=== PATIENT | male | born 1995 | race Caucasian/White ===

== ENCOUNTER 2018-02-11 02:43 | Emergency (ER) | payer OTHER, SELFPAY ==
[2018-02-11 02:45] VITALS: BP 138/78; PULSE 110; RESP 17; TEMP 36.9; O2SAT 97; BMI 21.2
--- NOTE | 2018-02-11 03:25 | ED.DCSUM_ITS ---
History of Present Illness Chief Complaint: Substance Abuse Informant: Patient Narrative: Patient presents wanting help with a drug abuse problem. He states he uses heroin and methamphetamine daily for about the past 2 years. He states in the same breath that he wants help getting off of the drugs, but wants to do it his way, and being admitted to the hospital is not his way, so he is here satisfying family members who wanted me to come. He last used both heroin and methamphetamine about 12 hours prior to arrival. He states he is now feeling a little anxious and shaky. He states he prefers to have somebody drop him off 500 miles away, it should take me about 16 days to walk back, and then I will be forced to be naturally detoxed. But no one will do that for me. Past Medical History - Allergies and Home Meds Allergies/Adverse Reactions: Allergies No Known Allergies Allergy (Verified 02/11/18 02:44) Primary Care Physician: EIGHTY,ONE [STAFF PHYSICIAN] - As soon as possible (or call new [facility] number, if you want acute detox) Past Medical History: None Smoking Status: Current every day smoker Drugs: Heroin, - - methamphetamine Review of Systems General: Reports: Malaise - and shaky. Denies: Chills, Fever, Sweats Cardiovascular: Denies: Chest pain, Palpitations Respiratory: Denies: Dyspnea, Cough, Dyspnea on exertion Gastrointestinal: Denies: Abdominal pain, Nausea, Vomiting, Diarrhea, Melena, Hematochezia Genitourinary: Denies: Dysuria, Hematuria, Frequency Musculoskeletal: Denies: Back pain, Extremity Pain Skin: Denies: Rash, Wounds Neurological: Denies: Headache, Weakness, Numbness Psych: Reports: Anxiety. Denies: Suicidal thoughts, Suicidal ideations Physical Exam Vital Signs/Narrative: Vital Signs Temp Pulse Resp BP Pulse Ox 02/11/18 02:45 98.4 F 110 H 17 138/78 H 97 Inital Vital Signs reviewed: Yes General: Well nourished, Well developed Head: Normocephalic, Atraumatic Eyes: Perrl, EOMI Neck: Supple - FROM Skin: Normal color, No rash Neurological: Alert, Oriented x3, Cranial nerves II-XII grossly intact, Normal Strength, Normal Sensation, Normal Gait Psychological: Normal affect Diagnostic/Tx/Re-eval - Medical Decision Making In discussing options with patient, and the fact that he would be less uncomfortable in a controlled environment meant for detox, he declines my offer for admission. It is Monday night/Monday morning, and he will not be evaluated for detox, if admitted, until Monday. This was discussed with him. He graciously accepts outpatient materials for [facility] and [facility]. He was a dvised that no one can force him to go through detox, he must go through it voluntarily. If he decides to, he was encouraged to either return to the ER, where he can be reevaluated for admission for inpatient detox, or to call 1 of the numbers and the pamphlets he was given. He was very appreciative of this plan, the family member who accompanied him did not object. ED Disposition - Plan for ED Patient: Disposition: Home or Assisted Living Chief Complaint: Substance Abuse Diagnosis: Opiate dependence, Methamphetamine addiction Instructions: ED Narcotic Abuse, ED Withdrawal Narcotic Referrals: EIGHTY,ONE [STAFF PHYSICIAN] - As soon as possible (or call new [facility] number, if you want acute detox)
--- NOTE | 2018-02-11 03:41 | ED.RN ---
THIS RN WENT TO DISCHARGE PT. PT REFUSED TO TAKE HIS INSTRUCTIONS, STATES JUST GIVE THEM TO MY MOM I'M LEAVING. PT MOTHER EDUCATED ON DISCHARGE INSTRUCTIONS AND PAMPHLETS FOR [facility] AND [facility] TO FOLLOW UP. PT MOTHER TAKES D/C PAPERS AND VERBALIZES UNDERSTANDING. DENIES ANY FURTHER QUESTIONS.
== END 2018-02-11 03:44 | disposition home or self-care (01) ==
LOC: ED 03:36
PROVIDERS: Emergency Provider Emergency Medicine; Family Provider Family Medicine
DX: F11.20 Opioid dependence, uncomplicated (principal); F15.20 Other stimulant dependence, uncomplicated; F17.200 Nicotine dependence, unspecified, uncomplicated
CPT/HCPCS: 99282

== ENCOUNTER 2018-02-23 14:05 | Emergency (ER) | payer OTHER, SELFPAY ==
[2018-02-23 14:06] VITALS: BP 134/88; PULSE 122; RESP 16; TEMP 36.3; O2SAT 97; BMI 21.6
--- NOTE | 2018-02-23 14:30 | RAD_ITS ---
STUDY: X-RAY - LEFT ANKLE REASON FOR EXAM: Male, 22 years old. Ankle pain following injury. TECHNIQUE: 3 view(s) of the ankle. COMPARISON: None. FINDINGS: Normal visualized distal tibia and fibula. Normal medial and lateral malleoli. Normal tibiotalar articulation and ankle mortise. Normal visualized talus and calcaneus. The visualized subtalar, talonavicular, calcaneocuboid and tarsal articulations are normal. The soft tissue structures are unremarkable. RAD/Ankle min 3 Views IMPRESSION: Normal x-ray examination of the ankle. Electronically Signed: Leo Mullins MD at 15:08 EDT Tel [phone], Service support ,
--- NOTE | 2018-02-23 14:38 | RAD_ITS ---
STUDY: X-RAY - LEFT FOOT CLINICAL: Male, 22 years old. Pain following injury. TECHNIQUE: 3 view(s) of the foot. COMPARISON: None. FINDINGS: Normal talus, calcaneus, and tarsal bones. Normal visualized subtalar, talonavicular, calcaneocuboid, tarsal and tarsometatarsal articulations. Normal metatarsi. Normal metatarsophalangeal joint of the great toe. Normal tibial and fibular sesamoid bones. Normal interphalangeal joint of the great toe. Normal phalanges of the great toe. Normal second through fifth metatarsophalangeal joints. Normal interphalangeal joints and phalanges of the lesser toes. The soft tissue structures are unremarkable. RAD/Foot min 3 Views IMPRESSION: Normal x-ray examination of the foot. Electronically Signed: Leo Mullins MD at 15:09 EDT Tel [phone], Service support ,
--- NOTE | 2018-02-23 15:47 | ED.VISSUMM ---
- ER Visit Summary Date of Service: 02/23/18 Chief Complaint: Left foot pain History of Present Illness: The patient is a 22 M with no primary care physician. He is a poor informant. He reports that approximately 6:00 this morning he fell from a height of approximately 8 feet. However, he is unable to tell me what he fell off of. He denies any blow to the head or loss of consciousness. He denies any neck, back, or other injuries. He reports that he has a sharp pain in his left foot that is 8 out of 10 with walking and 4 out of 10 at rest. He is not taking anything for this. Physical Examination: Vitals: Stable. Afebrile. Neck: No vertebral tenderness. Full ROM without difficulty. Cleared by NEXUS criteria. Back: No vertebral tenderness. General: A&O x 3. NAD. Cardiovascular exam: Regular rate and rhythm, no murmur, rub or gallop. Respiratory exam: Chest nontender. No crepitus. Clear to auscultation bilaterally. No wheezes or stridor. Abdominal exam: Soft, nontender, nondistended, normal bowel sounds. No pain in RUQ or LUQ specifically. No peritoneal signs. Extremity: Mild tenderness palpation over the lateral malleolus on the left. Moderate tenderness palpation just distal to this with mild soft tissue swelling. No contusion or abrasion. No pain over the medial malleolus or proximal fibula. No pain over the base the fifth metatarsal. He has a 2+ dorsalis pedis pulse and normal sensation light touch.. Test Results: X-ray of his left foot and ankle are negative. Emergency Department Course and Treatment: Patient was treated with ibuprofen. He refused crutches. Treatment Plan: Patient be discharged with naproxen for pain. Follow-up with Dr. Spears in 1 week if not improving. Disposition: To home in improved and stable condition. Impression: 1. Fall. 2. Left foot sprain. This note was generated with [employer] dictation software. It may contain incorrect words, spelling, and punctuation that were not noted in review of the chart prior to signing ED Disposition - Plan for ED Patient: Disposition: Home or Assisted Living Chief Complaint: Lower Extremity Injury Instructions: ED Sprain Foot Prescriptions: Naproxen [Naprosyn] 500 mg PO BID #14 tablet Referrals: Ti Spears DPM [STAFF PHYSICIAN] - 1 Week if not improving
[2018-02-23 15:57] VITALS: BP 132/83; PULSE 99; RESP 16; O2SAT 99
[2018-02-23] MEDS: Ibuprofen 600 MG Tablet PO (15:57)
== END 2018-02-23 16:01 | disposition home or self-care (01) ==
PROVIDERS: Emergency Provider Emergency Medicine
DX: S93.602A Unspecified sprain of left foot, initial encounter (principal); W17.89XA Other fall from one level to another, initial encounter; Y93.9 Activity, unspecified; Y92.9 Unspecified place or not applicable; F17.200 Nicotine dependence, unspecified, uncomplicated
CPT/HCPCS: 73610; 73630; 99283

== ENCOUNTER 2018-03-22 02:36 | Emergency (ER) | payer OTHER, SELFPAY ==
[2018-03-22 02:38] VITALS: BP 152/88; PULSE 124; RESP 16; TEMP 36.8; O2SAT 100; BMI 21.7
--- NOTE | 2018-03-22 03:00 | ED.DCSUM_ITS ---
- ER Visit Summary Date of Service: 03/22/18 Chief Complaint: [] STD check History of Present Illness: The patient is a 22 M requesting STD check. He is a penile discharge for 1 month green and thick. Positive sexually active one partner with his girlfriend who is in [place] [facility] with similar symptoms. He stated he had bumps along his pubic line that went away. Positive remote chlamydia only. Denies any other symptoms Physical Examination: [] Vital signs reviewed General: Well-nourished well-developed Head: Normocephalic atraumatic Eyes: Pupils equal round and reactive to light extraocular movements intact ENT: TMs clear no hemotympanum no trauma Neck: Nontender full range of motion Cardiovascular: Regular rate rhythm no murmurs normal S1-S2 Respiratory: No distress clear to auscultation bilaterally chest nontender Abdomen: Soft nontender nondistended normal bowel sounds no masses Genital:. Patient refused Back: Nontender no CVA tenderness Extremities: Nontender active range of motion ?4 extremities no trauma Skin: Normal color no trauma Neuro alert oriented cranial nerves II through XII intact normal strength sensation reflexes Test Results: [] Emergency Department Course and Treatment: [] Patient refused general exam. Willing to give a urine analysis. Urine analysis sent for gonorrhea and chlamydia as well as Trichomonas. Treated with ceftriaxone and azithromycin. Will hold off on trich treatment pending result. This time he likely has urethritis. We will follow-up with the [facility] department for further testing Treatment Plan: [] Disposition: [] Impression: [] Penile discharge?suspected urethritis This note was generated with [employer] dictation software. It may contain incorrect words, spelling, and punctuation that were not noted in review of the chart prior to signing ED Disposition - Plan for ED Patient: Chief Complaint: Male Pain/Injury Referrals: Care Physician,No Primary [Primary Care Provider] -
--- NOTE | 2018-03-22 03:00 | ED.DEP ---
ED Disposition - Plan for ED Patient: Disposition: Home or Assisted Living Chief Complaint: Male Pain/Injury Instructions: ED STD Male Treated Referrals: Care Physician,No Primary [Primary Care Provider] - [facility] [[facility]] - Vazquez Vick DO [NON CLINICAL AFFILIATE] -
[2018-03-22] MEDS: Azithromycin 250 MG Tablet 1000 MG PO (03:01)
[2018-03-22] MEDS: Ceftriaxone 500 MG Vial 250 MG IM (03:09)
[2018-03-22 03:23] VITALS: BP 159/75; PULSE 125; RESP 17; O2SAT 96
[2018-03-22 04:34] LABS: Probe Check PASS; Sample Adequacy Control PASS; Specimen Processing Control PASS; Trichomonas Vag DNA by PCR Negative (Negative)
[2018-03-22 04:44] LABS: Probe Check PASS
[2018-03-22 04:46] LABS: Chlamydia Trachomatis by PCR POSITIVE (Negative); Neisserai gonorrhoeae by PCR Positive (Negative)
--- NOTE | 2018-03-22 04:49 | ED.RN ---
lab called with positive results. positive gonorrhea and chloamydia. Dr. Avalos made aware. Patient has been treated and requires no further follow up at this time. Attempted to contact patient to let him know. Unable to leave message secondary number is not working
--- NOTE | 2018-03-22 05:36 | ED.RN ---
made contact with the patient. patient made aware of results. and expresses verbal understanding
--- OUTSIDE RECORDS SUMMARY | 2018-05-17 05:23 | XMS RPT_ITS ---
:1995 Author Organization [facility] Care Team Providers Name Role Phone Umer Costello Primary Care Unavailable SATYA MORRELL Attending Unavailable Darwin Julian Attending Unavailable Primay Care Physicia, No Primary Care Unavailable Behzad Avalos Attending Unavailable Primay Care Physicia, No Primary Care Unavailable PROBLEMS PROBLEMS No Problem Records FoundPROCEDURES PROCEDURES No Procedure Records FoundRESULTS RESULTS EMERGENCY DEPARTMENT Observed: 03/22/2018 Status: F Source: [place] SUMMARY 7:13 AM [facility] REPOSITORY [facility] Medical Records Department [address] [place] [address] Emergency Department Summary 03/22/18 0259 MR#: [id number] Acct: [id number] Name: TENZIN GUERRERO Rep #: [id number] : 1995 22 From: Behzad Avalos MD PCP: Care Physician, No Primary Status: DEP ER - ER Visit Summary Date of Service: 03/22/18 Chief Complaint: [] STD check History of Present Illness: The patient is a 22 M requesting STD check. He is a penile discharge for 1 month green and thick. Positive sexually active one partner with his girlfriend who is in prison with similar symptoms. He stated he had bumps along his pubic line that went away. Positive remote chlamydia only. Denies any other symptoms Physical Examination: [] Vital signs reviewed General: Well-nourished well-developed Head: Normocephalic atraumatic Eyes: Pupils equal round and reactive to light extraocular movements intact ENT: TMs clear no hemotympanum no trauma Neck: Nontender full range of motion Cardiovascular: Regular rate rhythm no murmurs normal S1-S2 Respiratory: No distress clear to auscultation bilaterally chest nontender Abdomen: Soft nontender nondistended normal bowel sounds no masses Genital:. Patient refused Back: Nontender no CVA tenderness Extremities: Nontender active range of motion 4 extremities no trauma Skin: Normal color no trauma Neuro alert oriented cranial nerves II through XII intact normal strength sensation reflexes Test Results: [] Emergency Department Course and Treatment: [] Patient refused general exam. Willing to give a urine analysis. Urine analysis sent for gonorrhea and chlamydia as well as Trichomonas. Treated with ceftriaxone and azithromycin. Will hold off on trich treatment pending result. This time he likely has urethritis. We will follow-up with the [facility] for further testing Treatment Plan: [] Disposition: [] Impression: [] Penile discharge suspected urethritis This note was generated with [employer] dictation software. It may contain incorrect words, spelling, and punctuation that were not noted in review of the chart prior to signing ED Disposition - Plan for ED Patient: Chief Complaint: Male Pain/Injury Referrals: Care Physician,No Primary [Primary Care Provider] - What to do if you have Problems For any increased pain, shortness of breath, bleeding, nausea or vomiting, chest pain, or any unexpected problems, contact your Primary Care Provider. Call [facility] ([phone]) or report to the closest Emergency Room. Call 911 if necessary. 03/22/18 0713 <Electronically signed by Behzad Avalos MD> Date Behzad Avalos MD Cosigner Signature (If Indicated): Date CC: No Primary Care Physician DISCHARGE INSTRUCTION Observed: 03/22/2018 Status: F Source: [place] 7:13 AM [facility] REPOSITORY [facility] Medical Records Department [address] [place] [address] Discharge Instruction 03/22/18 0300 MR#: [id number] Acct: [id number] Name: TENZIN GUERRERO Rep #: [id number] : 1995 22 From: Behzad Avalos MD PCP: Franky Physician, No Primary Status: DEP ER ED Disposition - Plan for ED Patient: Disposition: Home or Assisted Living Chief Complaint: Male Pain/Injury Instructions: ED STD Male Treated Referrals: Care Physician,No Primary [Primary Care Provider] - [facility] [[facility]] - Vazquez Vick DO [NON CLINICAL AFFILIATE] - What to do if you have Problems For any increased pain, shortness of breath, bleeding, nausea or vomiting, chest pain, or any unexpected problems, contact your Primary Care Provider. Call [facility] ([phone]) or report to the closest Emergency Room. Call 911 if necessary. 03/22/18712 <Electronically signed by Behzad Avalos MD> Date Behzad Avalos MD Cosigner Signature (If Indicated): Date CC: No Primary Care Physician TRICHOMONAS VAGINALIS Collected: 03/22/2018 Status: F Source: [place] [facility]/PCR 3:05 AM [facility] REPOSITORY TYPE CODE TESTS RESULT OUT OF RANGE REFERENCE UNITS LAB L8200.3100 Negative Normal TV RESULT Negative Performed By: #### L8200.3000 #### [facility] [address] [place], [address] CT/NG [facility] BY PCR Collected: 03/22/2018 Status: F Source: [place] 3:05 AM [facility] REPOSITORY Order Comment: Has pt arrived? Y TYPE CODE TESTS RESULT OUT OF REFERENCE UNITS RANGE LAB L8200.2100 Negative High Chlam POSITIVE Trac PCR Result Comment: CRITICAL VALUE VERIFIED. CALLED TO SHAHIDA DÍAZ 03/22/18 044Imelda Janina Méndez. RESULTS READ BACK BY SAME . LAB L8200.2200 Negative High Positive NG by PCR Result Comment: CRITICAL VALUE VERIFIED. CALLED TO SHAHIDA DÍAZ 03/22/18 044Imelda Janina Méndez. RESULTS READ BACK BY SAME . Performed By: #### L8200.2000 #### [facility] [address] [place], [address] EMERGENCY DEPARTMENT Observed: 02/23/2018 Status: F Source: [place] SUMMARY 4:29 PM [facility] REPOSITORY [facility] Medical Records Department [address] [place] [address] Emergency Department Summary 02/23/18 1547 MR#: [id number] Acct: [id number] Name: TENZIN GUERRERO Rep #: [id number] : 1995 22 From: Darwin Julian MD PCP: Care Physician, No Primary Status: DEP ER - ER Visit Summary Date of Service: 02/23/18 Chief Complaint: Left foot pain History of Present Illness: The patient is a 22 M with no primary care physician. He is a poor informant. He reports that approximately 6:00 this morning he fell from a height of approximately 8 feet. However, he is unable to tell me what he fell off of. He denies any blow to the head or loss of consciousness. He denies any neck, back, or other injuries. He reports that he has a sharp pain in his left foot that is 8 out of 10 with walking and 4 out of 10 at rest. He is not taking anything for this. Physical Examination: Vitals: Stable. Afebrile. Neck: No vertebral tenderness. Full ROM without difficulty. Cleared by NEXUS criteria. Back: No vertebral tenderness. General: A AND O x 3. NAD. Cardiovascular exam: Regular rate and rhythm, no murmur, rub or gallop. Respiratory exam: Chest nontender. No crepitus. Clear to auscultation bilaterally. No wheezes or stridor. Abdominal exam: Soft, nontender, nondistended, normal bowel sounds. No pain in RUQ or LUQ specifically. No peritoneal signs. Extremity: Mild tenderness palpation over the lateral malleolus on the left. Moderate tenderness palpation just distal to this with mild soft tissue swelling. No contusion or abrasion. No pain over the medial malleolus or proximal fibula. No pain over the base the fifth metatarsal. He has a 2+ dorsalis pedis pulse and normal sensation light touch.. Test Results: X-ray of his left foot and ankle are negative. Emergency Department Course and Treatment: Patient was treated with ibuprofen. He refused crutches. Treatment Plan: Patient be discharged with naproxen for pain. Follow-up with Dr. Spears in 1 week if not improving. Disposition: To home in improved and stable condition. Impression: 1. Fall. 2. Left foot sprain. This note was generated with [employer] dictation software. It may contain incorrect words, spelling, and punctuation that were not noted in review of the chart prior to signing ED Disposition - Plan for ED Patient: Disposition: Home or Assisted Living Chief Complaint: Lower Extremity Injury Instructions: ED Sprain Foot Prescriptions: Naproxen [Naprosyn] 500 mg PO BID #14 tablet Referrals: Ti Spears DPM [STAFF PHYSICIAN] - 1 Week if not improving What to do if you have Problems For any increased pain, shortness of breath, bleeding, nausea or vomiting, chest pain, or any unexpected problems, contact your Primary Care Provider. Call [facility] ([phone]) or report to the closest Emergency Room. Call 911 if necessary. 02/23/18 6009 <Electronically signed by Darwin Julian MD> Date Darwin Julian MD Cosigner Signature (If Indicated): Date CC: No Primary Care Physician ANKLE MIN 3 VIEWS Observed: 02/23/2018 Status: F Source: [place] 2[facility]28 PM [facility] Imaging Services [address] [place] [address] Ankle min 3 Views MR#: [id number] Acct: [id number] Name: TENZIN GUERRERO Rep #: [id number] : 1995 M 22 From: Leo Mullins MD PCP: Care Physician, No Primary Status: REG ER Study: Ankle min 3 Views Date of Exam: 02/23/18 Exam# [id number] Ordering Dr: Darwin Julian MD STUDY: X-RAY - LEFT ANKLE REASON FOR EXAM: Male, 22 years old. Ankle pain following injury. TECHNIQUE: 3 view(s) of the ankle. COMPARISON: None. FINDINGS: Normal visualized distal tibia and fibula. Normal medial and lateral malleoli. Normal tibiotalar articulation and ankle mortise. Normal visualized talus and calcaneus. The visualized subtalar, talonavicular, calcaneocuboid and tarsal articulations are normal. The soft tissue structures are unremarkable. RAD/Ankle min 3 Views IMPRESSION: Normal x-ray examination of the ankle. Electronically Signed: Leo Mullins MD at 15:08 EDT Tel [phone], Service support , CC: No Primary Care Physician; Darwin Julian MD Bar Helper: Signed FOOT MIN 3 VIEWS Observed: 02/23/2018 Status: F Source: [place] 2:28 PM [facility] REPOSITORY [facility] Imaging Services [address] [place] [address] Foot min 3 Views MR#: [id number] Acct: [id number] Name: TENZIN GUERRERO Rep #: [id number] : 1995 M 22 From: Leo Mullins MD PCP: Care Physician, No Primary Status: REG ER Study: Foot min 3 Views Date of Exam: 02/23/18 Exam# [id number] Ordering Dr: Darwin Julian MD STUDY: X-RAY - LEFT FOOT CLINICAL: Male, 22 years old. Pain following injury. TECHNIQUE: 3 view(s) of the foot. COMPARISON: None. FINDINGS: Normal talus, calcaneus, and tarsal bones. Normal visualized subtalar, talonavicular, calcaneocuboid, tarsal and tarsometatarsal articulations. Normal metatarsi. Normal metatarsophalangeal joint of the great toe. Normal tibial and fibular sesamoid bones. Normal interphalangeal joint of the great toe. Normal phalanges of the great toe. Normal second through fifth metatarsophalangeal joints. Normal interphalangeal joints and phalanges of the lesser toes. The soft tissue structures are unremarkable. RAD/Foot min 3 Views IMPRESSION: Normal x-ray examination of the foot. Electronically Signed: Leo Mullins MD at 15:09 EDT Tel [phone], Service support , CC: No Primary Care Physician; Darwin Julian MD Bar Helper: Signed EMERGENCY DEPARTMENT Observed: 02/11/2018 Status: F Source: [place] SUMMARY 5:04 AM [facility] REPOSITORY [facility] Medical Records Department [address] [place] [address] Emergency Department Summary 02/11/18 0321 MR#: [id number] Acct: [id number] Name: TENZIN GUERRERO Rep #: [id number] : 1995 22 From: Satya Morrell MD PCP: ANTONY, DEFINED Status: DEP ER History of Present Illness Chief Complaint: Substance Abuse Informant: Patient Narrative: Patient presents wanting help with a drug abuse problem. He states he uses heroin and methamphetamine daily for about the past 2 years. He states in the same breath that he wants help getting off of the drugs, but wants to do it his way, and being admitted to the hospital is not his way, so he is here satisfying family members who wanted me to come. He last used both heroin and methamphetamine about 12 hours prior to arrival. He states he is now feeling a little anxious and shaky. He states he prefers to have somebody drop him off 500 miles away, it should take me about 16 days to walk back, and then I will be forced to be naturally detoxed. But no one will do that for me. Past Medical History - Allergies and Home Meds Allergies/Adverse Reactions: Allergies No Known Allergies Allergy (Verified 02/11/18 02:44) Primary Care Physician: EIGHTY,ONE [STAFF PHYSICIAN] - As soon as possible (or call [facility] number, if you want acute detox) Past Medical History: None Smoking Status: Current every day smoker Drugs: Heroin, - - methamphetamine Review of Systems General: Reports: Malaise - and shaky. Denies: Chills, Fever, Sweats Cardiovascular: Denies: Chest pain, Palpitations Respiratory: Denies: Dyspnea, Cough, Dyspnea on exertion Gastrointestinal: Denies: Abdominal pain, Nausea, Vomiting, Diarrhea, Melena, Hematochezia Genitourinary: Denies: Dysuria, Hematuria, Frequency Musculoskeletal: Denies: Back pain, Extremity Pain Skin: Denies: Rash, Wounds Neurological: Denies: Headache, Weakness, Numbness Psych: Reports: Anxiety. Denies: Suicidal thoughts, Suicidal ideations Physical Exam Vital Signs/Narrative: Vital Signs 02/11/18 02:45 98.4 F 110 H 17 138/78 H 97 Inital Vital Signs reviewed: Yes General: Well nourished, Well developed Head: Normocephalic, Atraumatic Eyes: Perrl, EOMI Neck: Supple - FROM Skin: Normal color, No rash Neurological: Alert, Oriented x3, Cranial nerves II-XII grossly intact, Normal Strength, Normal Sensation, Normal Gait Psychological: Normal affect Diagnostic/Tx/Re-eval - Medical Decision Making In discussing options with patient, and the fact that he would be less uncomfortable in a controlled environment meant for detox, he declines my offer for admission. It is Monday night/Monday morning, and he will not be evaluated for detox, if admitted, until Monday. This was discussed with him. He graciously accepts outpatient materials for [facility]. He was advised that no one can force him to go through detox, he must go through it voluntarily. If he decides to, he was encouraged to either return to the ER, where he can be reevaluated for admission for inpatient detox, or to call 1 of the numbers and the pamphlets he was given. He was very appreciative of this plan, the family member who accompanied him did not object. ED Disposition - Plan for ED Patient: Disposition: Home or Assisted Living Chief Complaint: Substance Abuse Diagnosis: Opiate dependence, Methamphetamine addiction Instructions: ED Narcotic Abuse, ED Withdrawal Narcotic Referrals: EIGHTY,ONE [STAFF PHYSICIAN] - As soon as possible (or call [facility] number, if you want acute detox) What to do if you have Problems For any increased pain, shortness of breath, bleeding, nausea or vomiting, chest pain, or any unexpected problems, contact your Primary Care Provider. Call [facility] ([phone]) or report to the closest Emergency Room. Call 911 if necessary. 02/11/18 0504 <Electronically signed by Satya Morrell MD> Date Satya Morrell MD Cosigner Signature (If Indicated): Date CC: DEFINED NOT; Umer Costello DO ALLERGIES ALLERGIES DATE TYPE / CODE NAME / CODE REACTION SEVERITY SOURCE 03/22/2018 Drug No Known Unknown [facility] Allergy/4160 Allergies/F00 Hospital [address]014(SNOMED [id number](RXNOR Repository CT) M) ENCOUNTERS ENCOUNTERS ADMIT/DISCHARGE ACCOUNT ADMITTING ENCOUNTER LOCATION SOURCE NUMBER CLASS 03/22/2018/ [id number] Emergency [address] ing:ED Repository 02/23/2018/ [id number] Emergency [address] ing:ED Repository 02/11/2018/ [id number] [place] [facility] ing:ED Repository PAYERS PAYERS ENCOUNTER GUARANTOR PAYER SUBSCRIBER SOURCE 03/22/2018 TENZIN GUERRERO222 Primary Darek Hu: Franny Hillman Insurance:MEDICAL [id number] [id number]: [phone]) Number: Repository [phone] () [id number] Date:[id number] [address] [place], [place] [id number]: 03/22/2018 Secondary NOT GIVENUNK [place] Insurance:SELF PAY [facility] Number: Effective Repository Date:2018-03-22 02/23/2018 TENZIN GUERRERO222 Primary Darek Hu: [place] Insurance:MEDICAL [id number] [address]Tel: [phone]) Number: Repository [phone] () [id number] Date:[id number] [address] [place], [place] [address]WP: 02/23/2018 Secondary NOT GIVENUNK Franny Insurance:SELF PAY [facility] Number: Effective Repository Date:2018-02-23 02/11/2018 Tenzin Guerrero222 Primary Darek Hu: [place] Insurance:MEDICAL [id number] [id number]: [phone]) Number: Repository [phone] () [id number] Date:[id number] [address] [place] [id number]: 02/11/2018 Secondary NOT GIVENUNK [place] Insurance:SELF PAY [facility] Number: Effective Repository Date:2018-02-11
== END 2018-03-22 03:24 | disposition home or self-care (01) ==
PROVIDERS: Emergency Provider Emergency Medicine
DX: R36.9 Urethral discharge, unspecified (principal); Z11.3 Encounter for screening for infections with a predominantly sexual mode of transmission; Z86.19 Personal history of other infectious and parasitic diseases; Z72.0 Tobacco use
CPT/HCPCS: 87491; 87591; 87661; 96372; 99283

== ENCOUNTER 2019-02-09 11:50 | Emergency (ER) | payer OTHER, SELFPAY ==
[2019-02-09 11:52] VITALS: BP 144/98; PULSE 81; RESP 16; TEMP 36.6; O2SAT 96; BMI 27.2
[2019-02-09] MEDS: Amox/Clavulanate 875 MG Tablet PO (12:09)
[2019-02-09] MEDS: HYDROcodone Bitartrate/Apap 5/325 Tablet PO (12:09)
--- NOTE | 2019-02-09 12:15 | ED.VIS.GEN ---
History of Present Illness Chief Complaint: Dental Informant: Patient Onset: Days Context: Gradual Onset Current Severity: Moderate Maximum Severity: Moderate Narrative: The patient presents to the emergency department dental pain. Patient has had a prior dental extraction and feels like he may have an abscess at the area. He had increased pain and swelling in his left upper jaw. He also describes facial fullness. He is scheduled to see his dentist tomorrow. He states he is just had worsening pain. He denies fevers or chills. He denies any trouble speaking or swallowing. Prior similar symptoms: No Recent Illness/Hospitalization: No Past Medical History - Allergies and Home Meds Allergies/Adverse Reactions: Allergies No Known Allergies Allergy (Verified 02/09/19 11:51) Primary Care Physician: Care Physician,No Primary [Primary Care Provider] - Prior records reviewed: Yes Past Medical History: None Surgical History: no surgical history Smoking Status: Current every day smoker Review of Systems General: Denies: Chills, Fever, Sweats Eyes: Denies: Visual changes - bilaterally, Diplopia ENT: Denies: Rhinorrhea, Sore throat Cardiovascular: Denies: Chest pain, Palpitations Respiratory: Denies: Dyspnea, Cough, Dyspnea on exertion Gastrointestinal: Denies: Abdominal pain, Nausea, Vomiting, Diarrhea, Melena, Hematochezia Genitourinary: Denies: Dysuria, Hematuria, Frequency Musculoskeletal: Denies: Back pain, Extremity Pain Skin: Denies: Rash, Wounds Neurological: Denies: Headache, Weakness, Numbness Physical Exam Vital Signs/Narrative: Vital Signs Temp Pulse Resp BP Pulse Ox 02/09/19 11:52 97.8 F 81 16 144/98 H 96 Inital Vital Signs reviewed: Yes General: Well nourished, Well developed, No Acute Distress Head: Normocephalic, Atraumatic Eyes: Perrl, EOMI ENT: Moist mucous membranes, No rhinorrhea, - - Oropharynx widely patent. He does have tenderness over the area of tooth #12. There is no focal abscess. The submental space is soft. Neck: Supple, Nontender Cardiovascular: Regular rate, Regular rhythm, No murmurs Respiratory: No distress, CTA bilaterally, Chest nontender Abdomen: Soft, Nontender, Nondistended, Normal bowel sounds Back: Nontender, Normal Inspection Extremities: Nontender, No edema Skin: Normal color, No rash Neurological: Alert, Oriented x3, Cranial nerves II-XII grossly intact, Normal Strength, Normal Sensation Psychological: Normal affect, Normal Mood Diagnostic/Tx/Re-eval - Medical Decision Making Patient presents with dental pain. There was no evidence of Ezio angina. He was started on Augmentin. He will be given 1 day of analgesics until he can follow-up with dentistry. He will be discharged home. Impression 1. Dental pain ED Disposition - Plan for ED Patient: Disposition: Home or Assisted Living Instructions: Dental Abscess Prescriptions: Amox/Clavulanate Tablet [Augmentin Tablet] 875 mg PO Q12H #20 tab Prescription Printed Naproxen [Naprosyn] 500 mg PO BID PRN #20 tab Prescription Printed Hydrocodone Bitart/Apap 5-325 [[place] 5MG-325MG] 1 tab PO Q4H PRN PRN 1 Days #4 tab PRN Reason: Pain Prescription Printed Referrals: Care Physician,No Primary [Primary Care Provider] -
== END 2019-02-09 12:38 | disposition home or self-care (01) ==
PROVIDERS: Emergency Provider Emergency Medicine
DX: K08.89 Other specified disorders of teeth and supporting structures (principal); F17.200 Nicotine dependence, unspecified, uncomplicated
CPT/HCPCS: 99283

== ENCOUNTER → 2021-03-03 | Outpatient (CLI) | payer BC, SELFPAY | END | disposition home or self-care (01) | LOC: LABSPEC 10:22 | PROVIDERS: Referring Provider Physician Assistant; Visit Provider Physician Assistant | DX: U07.1 COVID-19 (principal) | CPT/HCPCS: 87635; U0005; U0003 ==